=== PATIENT | female | born 1950 | race Caucasian/White ===

== ENCOUNTER 2019-12-29 06:42 | Emergency (ER) | payer MEDICARE, SELFPAY ==
--- NOTE | ~2019-12-29 | XR_ITS ---
XR wrist LT min 3V, XR forearm LT 2V 12/29/2019 07:14 Indication: Injury. Less wrist deformity Procedure: 3 views left wrist and 2 views left forearm Comparison: 12/29/2019 Findings: There is a comminuted distal radial fracture with intra-articular extension, dorsal displac ement and dorsal angulation. There is an ulnar styloid avulsion fracture. Osteopenia. Mild polyarticu lar osteoarthritis. No significant soft tissue abnormality. Impression: 1: Comminuted distal radial fracture with intra-articular extension, dorsal displacement and angulati on. 2: Ulnar styloid avulsion fracture. Reviewed, dictated and finalized at location A. NT SERVICE CONSULTANT Impression: 1: Comminuted distal radial fracture with intra-articular extension, dorsal dis placement and angulation. 2: Ulnar styloid avulsion fracture. Impression: 1: Comminuted distal radial fracture with intra-articular extension, dorsal dis placement and angulation. 2: Ulnar styloid avulsion fracture.
--- NOTE | ~2019-12-29 | XR_ITS ---
XR wrist LT 2V 12/29/2019 09:20 Indication: Post reduction left wrist fracture Procedure: 2 views left wrist performed and fiberglass cast Comparison: 12/29/2019 Findings: There is improved alignment of comminuted intra-articular distal radial fracture with decre ased dorsal displacement and angulation. Ulnar styloid avulsion fracture. Mild polyarticular osteoart hritis. Osteopenia. Impression: 1: Improved alignment of comminuted intra-articular distal radial fracture post reduction. Reviewed, dictated and finalized at location A. T PROTECTION GUARD Impression: 1: Improved alignment of comminuted intra-articular distal radial fracture post reduction.
--- NOTE | 2019-12-29 07:01 | ED.UPPEXIN ---
HPI - Extremity Injury (Upper) General Chief Complaint: Extremity Injury, Upper Stated Complaint: Poss broken arm Time Seen by Provider: 12/29/19 07:01 Source: patient Mode of arrival: ambulatory Limitations: no limitations History of Present Illness HPI narrative: Patient is a 69-year-old female who presents for evaluation arm injury. Patient states that she believes that she fell out of bed around midnight earlier this morning, injuring her left wrist and elbow. Patient reports dull, aching pain at the site which is worse with movement. She denies any numbness or weakness. She denies head injury, neck pain, chest pain, back pain, abdominal pain or lower pelvis or lower extremity pain. She was unable to ambulate to the bathroom. She went back to sleep, but noted swelling and increased pain this morning. Related Data Allergies Allergy/AdvReac Type Severity Reaction Status Date / Time No Known Allergies Allergy Verified 12/29/19 07:43 Review of Systems Review of Systems: Narrative: CONSTITUTIONAL: Denies fever CARDIOVASCULAR: Denies chest pain RESPIRATORY: Denies cough or dyspnea. GASTROINTESTINAL: Denies abdominal pain SKIN: Denies rash MUSCULOSKELETAL: Denies back pain, reports left wrist and left elbow pain NEUROLOGIC: Denies headache PMFSH Past Medical History Medical History Hypothyroidism Surgical History Surgical History (Updated 12/29/19 @ 09:23 by Camila Steward MD) H/O: hysterectomy Hx of appendectomy Social History Social History (Updated 12/29/19 @ 09:23 by Camila Steward MD) Smoking status: Never smoker Living arrangements: with family Gender identity (if verbalized by the patient): Female Exam Narrative: Exam Narrative: GENERAL: Awake, alert, conversant HEAD: Normocephalic, atraumatic. EYES: PERRLA and EOMI. ENT: Nares clear, no rhinorrhea or epistaxis. Mucous membranes moist. NECK: Supple. CHEST: No respiratory distress, breathing even and non labored HEART: Regular rate, sinus rhythm ABDOMEN:Non distended, non tender EXTREMITIES: Deformity, decreased range of motion in the left wrist due to pain. Tenderness at the distal radial head. Radial pulse 2+. Intact sensation median, ulnar, radial nerve distribution. Full flexion and extension at the left shoulder without deformity or limitation. No tenderness overlying the deltoid or clavicle. SKIN: Warm, dry, no rash. NEURO:No focal deficits. Alert and oriented x3 Procedures Joint Aspiration/Injection Joint Asp./Inject. 1: Joint Aspiration Date: 12/29/19 Joint Aspiration Time: 08:05 Time Out Performed: Yes Side of body: left Joint Aspirated: wrist/hand Ultrasound Guidance: No Skin Prep: Povidone-Iodine1% Local Anesthetic: lidocaine 1% Amount of anesthesia used (mL): 5 Medication Injected, if any: Lidocaine Amount of medication injected (mL): 5 Patient Tolerated Procedure: well and no complications Complications: none Orthopedic Joint Reduction Joint #1: Orthopedic Joint Reduction Date: 12/29/19 Orthopedic Joint Reduction Time: 08:05 Time Out Performed: Yes Side: left Joint Reduction Location: wrist Analgesia: hematoma block Pre-Procedure Neuro Vascular Exam: normal Local Anesthesia: lidocaine 1% Amount of anesthesic used (mL): 5 Technique used: direct manipulation Post-reduction neuro exam: intact Post-reduction vascular: intact Splint Applied: Yes Patient Tolerated Procedure: well Orthopedic Splinting/Casting Injury #1: Splinting/Casting Date: 12/29/19 Splinting/Casting Time: 08:06 Side: left Upper Extremity Injury Location: wrist Upper Extremity Immobilizer: sugar tong splint Splint: customized in ED Pre-Procedure Neuro Vascular Exam: normal Post-Proce
[2019-12-29] MEDS: ONDANSETRON HCL ODT 4 MG TABLET PO (07:45)
[2019-12-29] MEDS: oxyCODONE/ACETAMINOPHEN (*CRX) 5-325 MG TABLET 1 TABLET PO (07:45)
[2019-12-29] MEDS: LIDO 1%/EPINEPHRINE 1:100,000 10 ML VIAL INFILTRATE (08:42)
== END 2019-12-29 09:40 | disposition home or self-care (01) ==
PROVIDERS: Emergency Provider Emergency Medicine; PCP Family Medicine
DX: S52.572A Other intraarticular fracture of lower end of left radius, initial encounter for closed fracture (principal); S52.612A Displaced fracture of left ulna styloid process, initial encounter for closed fracture; E03.9 Hypothyroidism, unspecified; W06.XXXA Fall from bed, initial encounter
CPT/HCPCS: 20600; 25605; 73090; 73100; 73110; 99285; A4565; A9270